=== PATIENT | female | born 1965 | race African-American/Black ===

== ENCOUNTER 2018-03-11 12:00 | Day surgery (SDC) | payer OTHER ==
[2018-02-12 13:01] VITALS: BMI 35.3
[~2018-03-11 12:00] MED LIST: BUPIVACAINE HCL/PF 0.5% (5MG/ML) 10 ML VIAL IJ ONE; LIDOCAINE HCL 1%, 10 MG/ML (20ML VIAL) INF ONE
--- NOTE | 2018-03-11 12:47 | HP ---
Satellite [facility] - Chief Complaint Chief Complaint: right wrist pain - Past Medical History Allergies/Adverse Reactions: Allergies Allergy/AdvReac Type Severity Reaction Status Date / Time gabapentin [From Neurontin] Allergy Severe Itching Verified 08/14/16 08:57 egg Allergy ASTHMA Verified 08/14/16 08:57 ATTACK shellfish derived Allergy Difficulty Verified 08/14/16 08:57 Breathing tramadol Allergy Itching Verified 08/14/16 08:57 ALL NARCOTICS Allergy SEVERE Uncoded 08/14/16 08:57 GENERALIZED ITCHING ...LMP: 12/15/14 - Current Medications Current Medications: Home Medications Medication Instructions Recorded Albuterol Sulfate Inhaler - 1 - 2 inh PO Q4H PRN 08/14/15 [Ventolin HFA Inhaler -] Botulinum Toxin A [Botox (Nf) -] 0 units IM ASDIR 08/14/15 Medroxyprogesterone Acetate mg IM ASDIR 08/14/15 [Depo-Provera -] Diclofenac Sodium [Pennsaid] 112 gm TP DAILY 02/12/18 Mometasone/Formoterol [Dulera 100 2 inh IH BID 02/12/18 Mcg/5 Mcg Inhaler] Satellite Physical Exam - Physical Examination General Appearance: Well Nourished, Well Developed, Alert & Oriented x3 ENT: Clear Lung: Normal air movement Heart: Regular rate & rhythm Extremities: Other (right wrist- + ttp first dorsal wrist compartment, + finkelsteins, nvi) Neurological: Intact, Alert, Oriented Satellite Impression/Plan - Impression/Plan Impression: right dequervains tenosynovitis Operative Procedure: right dequervains release Date to be Performed: 03/11/18
[2018-03-11] MEDS ORDERED: LIDOCAINE HCL 1%, 10 MG/ML (20ML VIAL) ONE (14:40)
[2018-03-11] MEDS ORDERED: BUPIVACAINE HCL/PF 0.5% (5MG/ML) 10 ML VIAL ONE (14:40)
[2018-03-11] MEDS ORDERED: MIDAZOLAM HCL 2 MG/2 ML SINGLE DOSE VIAL ONE ×3 (14:43→15:28)
[2018-03-11] MEDS ORDERED: KETAMINE HCL 200 MG/20 ML VIAL ONE (15:03)
[2018-03-11] MEDS ORDERED: ceFAZolin SODIUM 1 GM VIAL IVPB ONE (15:10)
[2018-03-11] MEDS ORDERED: GLYCOPYRROLATE 0.2 MG/1 ML VIAL ONE (15:17)
[2018-03-11] MEDS ORDERED: SODIUM CHLORIDE 0.9% P/F 10 ML VIAL IJ ONE (15:19)
[2018-03-11] MEDS ORDERED: BUPIVACAINE HCL/PF 0.5% (5MG/ML) 10 ML VIAL IJ ONE ×2 (15:26)
[2018-03-11] MEDS ORDERED: LIDOCAINE HCL 1%, 10 MG/ML (20ML VIAL) INF ONE ×2 (15:26)
[2018-03-11] MEDS ORDERED: LIDOCAINE HCL/PF 2% SDV 5ML VIAL ONE (15:39)
[2018-03-11] MEDS ORDERED: ceFAZolin SODIUM 1 GM VIAL ONE (15:39)
[2018-03-11] MEDS ORDERED: DEXAMETHASONE SOD PHOSPHATE 4 MG/1 ML VIAL ONE (15:39)
--- NOTE | 2018-03-11 15:50 | OP ---
Operative Note - Note: Operative Date: 03/11/18 Pre-Operative Diagnosis: right Dequervain's Operation: right Dequervain's release, tendon sheath excision Post-Operative Diagnosis: Same as Pre-op Surgeon: Juan Vela Anesthesiologist/CALL CENTER PROFESSIONAL: Dorothea Chavez Anesthesia: Local, MAC Specimens Removed: tendon sheath Estimated Blood Loss (mls): 0 Blood Volume Replaced (mls): 0 Fluid Volume Replaced (mls): 500 Operative Report Dictated: Yes
[2018-03-11] MEDS ORDERED: ONDANSETRON 4 MG/2 ML VIAL IVPUSH PRN (15:55)
[2018-03-11] MEDS ORDERED: ACETAMINOPHEN 1000 MG/100 ML VIAL (NON FORMULARY) IVPB ONE (15:56)
[2018-03-11] MEDS ORDERED: ACETAMINOPHEN INJECTION 100 ML IVPB ONE (15:59)
[2018-03-11] MEDS ORDERED: LACTATED RINGERS SOLUTION 1,000 ML IV SCH (16:00)
[2018-03-11 17:48] VITALS: BP 152/96; PULSE 89; TEMP 98.3
--- NOTE | 2018-03-12 12:25 | SPEC ---
DATE OF OPERATION: 03/11/2018 PREOPERATIVE DIAGNOSIS: Recurrent severe right de Quervains tenosynovitis. POSTOPERATIVE DIAGNOSIS: Recurrent severe right de Quervains tenosynovitis. PROCEDURE: Right de Quervains release and tendon sheath excision. SURGEON: Juan Vela M.D. ASSISTANTS: ANESTHESIA: MAC anesthesia, local injection of 12 mL of 0.5% Marcaine and 1% lidocaine mix. DRAINS: None. COMPLICATIONS: None. SPECIMEN: Tendon sheath, right wrist. BLOOD LOSS: None. BLOOD GIVEN: None. FLUID REPLACEMENT: 500 mL. SPECIMEN: First dorsal wrist compartment tendon sheath, right wrist. INDICATIONS: The patient is a 52-year-old female with the preoperative diagnosis of a right de Quervain's release and tendon sheath excision. After understanding the potential risks, complications, alternatives and benefits of surgery versus nonsurgical treatment, the patient elected to undergo this procedure. DESCRIPTION OF PROCEDURE: Patient was brought to the operating room, peripheral IV placed, IV sedation given. One gram of IV Ancef was given. MAC anesthesia was induced. The tourniquet was applied to the right arm. The entire care was done under 3.8 loop magnification. The right upper extremity was prepped and draped in a sterile fashion. A longitudinal incision was marked out with a marking pen. A mix of 10 mL of 0.5% Marcaine and 1% lidocaine was injected in and around the surgical area. The right upper extremity was then elevated, exsanguinated with an Esmarch bandage, and the tourniquet inflated to 250 mmHg. A No. 15 scalpel blade was utilized to make a longitudinal incision. Subcutaneous hemostasis was achieved with a bipolar cautery. Dissection was done with a Littler scissors down to the first dorsal wrist compartment. Great care was taken to directly visualize and preserve all crossing sensory branches of the sensory nerve. Under direct visualization, the first dorsal wrist compartment was visualized and it was freed up from some adhesions with a Mcgehee elevator. Next, a fresh No. 15 scalpel blade was utilized to open up the first dorsal wrist compartment, starting proximally and going distally both with the No. 15 scalpel blade and also with a Littler scissors. The anatomy was seen to have multiple slips of the abductor pollicis longus and the extensor pollicis brevis was in its own tendon tunnel. This was also released and the wall between the two excised. The roof of the tunnel was excised. This was all passed off the field as specimen. The volar lip of the first dorsal wrist compartment was preserved to prevent volar subluxation. The release was completed both distally and proximally in both compartments. I was able to bring out all slips through the wound with a Ragnell retractor and there were no obvious points of compression. The area was copiously irrigated and washed out, again explored and I didn't see any other abnormal tissue and therefore closure was begun. Undyed 4-0 Vicryl was used to close the deep dermal layer. Final skin reapproximation was done with a running subcuticular 4-0 Biosyn stitch. The area was then washed and dried, covered with Steri-Strips, 4 x 4's, fluffs between the fingers, Webril and Coban used to make a thumb spica Coban splint. The tourniquet was taken down after a total tourniquet time of 11 minutes. There were no complications during the case. The patient tolerated the procedure quite well and was brought to ambulatory recovery room in stable condition. Fiona [id number]
--- NOTE | 2018-03-16 08:53 | PATH ---
Surgical Pathology Report Patient Name: MELANIE ZAIDI [facility]. Rec. #: [id number] /Age/Gender: 1965 (Age: 52) / F Account: [id number] Location: U SURGICAL Taken: 03/11/2018 Received: 03/12/2018 Reported: 03/16/2018 Physicians: Juan Vela M.D. Specimen(s) Received TENDON SHEATH Clinical History Right de Quervains Final Diagnosis SOFT TISSUE, RIGHT DE QUERVAIN'S RELEASE: TENOSYNOVIUM WITH MILD CHRONIC INFLAMMATION. Electronically Signed Royal Ladd M.D. Gross Description Received in formalin labeled "tendon sheath" are multiple fragments of white-shen fibromembranous soft tissue measuring 1 x 1 x 0.4 cm in aggregate. The entire specimen is submitted in one cassette [facility] [place]12[place]2018 [place]/03/12/2018
== END 2018-03-11 17:59 | disposition home or self-care (01) ==
LOC: JASU-SURG 12:00
PROVIDERS: ATTEND Orthopaedic Surgery
PROC: 0LN50ZZ Release Right Lower Arm and Wrist Tendon, Open Approach (ICD-10-PCS; principal; 2018-03-11 14:00)
DX: M65.4 Radial styloid tenosynovitis [de Quervain] (principal)
CPT/HCPCS: 88304-TC; J0131

== ENCOUNTER 2022-11-19 05:59 | Day surgery (SDC) | payer OTHER ==
[2022-11-14 16:03] VITALS: BMI 32.1
[2022-11-19] MEDS ORDERED: THROMBIN (BOVINE) 5,000 UNIT VIAL TP ONE (06:44)
[2022-11-19] MEDS ORDERED: ceFAZolin SODIUM 1 GM VIAL ONE ×2 (06:44→07:45)
[2022-11-19] MEDS ORDERED: CEFAZOLIN 2 GM in DEXTROSE 5%-WATER - 50 ML IVPB ONE (07:13)
[2022-11-19] MEDS ORDERED: BUPIVICAINE 0.25%/MORPH PF/KETOROLAC - 51ML DISP.SYRINGE IA ONE ×2 (07:13→08:26)
[2022-11-19] MEDS ORDERED: ONDANSETRON 4 MG/2 ML VIAL IVPUSH PRN ×2 (07:13→09:12)
[2022-11-19] MEDS ORDERED: ALBUTEROL SO4 HFA INHALER IH PRN (07:14)
[2022-11-19] MEDS ORDERED: RIMEGEPANT SULFATE 75 MG TAB.RAPDIS SL PRN (07:14)
[2022-11-19] MEDS ORDERED: LACTATED RINGERS SOLUTION 1,000 ML IV SCH (07:15)
[2022-11-19] MEDS ORDERED: ROPIVACAINE HCL 0.5% 30ML VIAL ONE (07:20)
[2022-11-19] MEDS ORDERED: SODIUM CHLORIDE 0.9% P/F 10 ML VIAL IJ ONE (07:20)
[2022-11-19] MEDS ORDERED: MIDAZOLAM HCL 2 MG/2 ML SINGLE DOSE VIAL ONE ×2 (07:20→07:44)
[2022-11-19] MEDS ORDERED: BUPIVACAINE HCL/PF 0.5% (5MG/ML) 10 ML VIAL ONE (07:20)
[2022-11-19] MEDS ORDERED: SUCCINYLCHOLINE CHLORIDE 200 MG/10 ML SYRINGE ONE (07:44)
[2022-11-19] MEDS ORDERED: DEXAMETHASONE SOD PHOSPHATE 4 MG/1 ML VIAL ONE (07:45)
[2022-11-19] MEDS ORDERED: PHENYLEPHRINE HCL 10 MG/1 ML SINGLE DOSE VIAL ONE (07:45)
[2022-11-19] MEDS ORDERED: KETOROLAC TROMETHAMINE 30 MG/1 ML VIAL ONE (07:45)
[2022-11-19] MEDS ORDERED: TRANEXAMIC ACID 1000 MG/10 ML VIAL IVPUSH ONE (08:30)
[2022-11-19] MEDS ORDERED: oxyCODONE HCL 5 MG TABLET PO PRN (09:12)
[2022-11-19] MEDS ORDERED: PROMETHAZINE HCL 25 MG/1 ML VIAL IVPUSH PRN (09:12)
[2022-11-19] MEDS ORDERED: PATIENT'S OWN MEDICATION (NON-FORMULARY) (Fluticasone/Vilanterol 1 PUFF Each) IH SCH (10:00)
[2022-11-19] MEDS: ACETAMINOPHEN 500 MG TABLET (FP) PO SCH ×3 (10:00→22:28)
[2022-11-19] MEDS: CEFAZOLIN 2 GM in DEXTROSE 5%-WATER - 50 ML IVPB SCH (17:00)
[2022-11-19] MEDS: PANTOPRAZOLE 40 MG TABLET PO SCH (17:11)
[2022-11-19] MEDS: MULTIVITAMINS (DAILY MVI) TABLET (FP) PO SCH (17:11)
[2022-11-19] MEDS: SENNOSIDES/DOCUSATE COMBO (SENNA PLUS) TABLET (UD) PO SCH ×2 (17:11→22:27)
[2022-11-19] MEDS: FAMOTIDINE 20 MG/50 ML IVPB 20 MG/50 ML MG IVPB SCH ×2 (17:11→22:27)
[2022-11-19 18:19] VITALS: RESP 18
[2022-11-20] MEDS: CEFAZOLIN 2 GM in DEXTROSE 5%-WATER - 50 ML IVPB SCH (00:08)
[2022-11-20] MEDS: oxyCODONE HCL 5 MG TABLET PO PRN ×4 (01:17→13:59)
[2022-11-20] MEDS: ACETAMINOPHEN 500 MG TABLET (FP) PO SCH ×3 (06:17→15:33)
[2022-11-20] MEDS ORDERED: ASPIRIN 325 MG TABLET PO SCH (08:00)
[2022-11-20] MEDS: FAMOTIDINE 20 MG/50 ML IVPB 20 MG/50 ML MG IVPB SCH (09:11)
[2022-11-20] MEDS: SENNOSIDES/DOCUSATE COMBO (SENNA PLUS) TABLET (UD) PO SCH (09:12)
[2022-11-20] MEDS: PANTOPRAZOLE 40 MG TABLET PO SCH (09:12)
[2022-11-20] MEDS: MULTIVITAMINS (DAILY MVI) TABLET (FP) PO SCH (09:12)
[2022-11-20 13:52] VITALS: BP 136/62; PULSE 76; TEMP 98.3
== END 2022-11-20 16:05 | disposition home health service (06) ==
LOC: FASUSAT 05:59 → FM/S 10:48 → FASUSAT 11-20 16:05
PROVIDERS: ATTEND Orthopaedic Surgery
PROC: 8E0Y0CZ Robotic Assisted Procedure of Lower Extremity, Open Approach (ICD-10-PCS; 2022-11-19)
PROC: 0SRD0L9 Replacement of Left Knee Joint with Medial Unicondylar Synthetic Substitute, Cemented, Open Approach (ICD-10-PCS; principal; 2022-11-19 07:51)
DX: M17.12 Unilateral primary osteoarthritis, left knee (principal)
CPT/HCPCS: 20985; 27446; C1776; S2900; 73560-TC-LT-FY; 94760; 97010-GP; 97116-GP; 97162-GP; C1889

== ENCOUNTER 2023-01-29 04:03 | Day surgery (SDC) | payer OTHER ==
[2023-01-24 16:53] VITALS: BMI 32.1
[2023-01-29] MEDS ORDERED: MIDAZOLAM HCL 2 MG/2 ML SINGLE DOSE VIAL ONE (10:52)
[2023-01-29] MEDS ORDERED: PROPOFOL 20 ML ONE (10:57)
[2023-01-29] MEDS ORDERED: ceFAZolin SODIUM 1 GM VIAL ONE (10:57)
[2023-01-29] MEDS ORDERED: ONDANSETRON 4 MG/2 ML VIAL ONE (10:57)
[2023-01-29] MEDS ORDERED: DEXAMETHASONE SOD PHOSPHATE 4 MG/1 ML VIAL ONE (10:57)
[2023-01-29] MEDS ORDERED: ceFAZolin SODIUM 1 GM VIAL IVPB ONE (11:11)
[2023-01-29] MEDS ORDERED: LABETALOL HCL 20 MG/4 ML VIAL ONE (11:47)
[2023-01-29] MEDS ORDERED: LABETALOL HCL 5 MG/1 ML (100MG/20 ML VIAL) IVPUSH ONE ×2 (11:48→11:50)
[2023-01-29] MEDS ORDERED: ACETAMINOPHEN 1000 MG/100 ML BAG IVPB PRN (11:50)
[2023-01-29] MEDS ORDERED: ONDANSETRON 4 MG/2 ML VIAL IVPUSH PRN (11:50)
[2023-01-29] MEDS ORDERED: ACETAMINOPHEN 1000 MG/100 ML BAG IVPB ONE (11:55)
[2023-01-29] MEDS ORDERED: LACTATED RINGERS SOLUTION 1,000 ML IV SCH (12:00)
[2023-01-29] MEDS ORDERED: hydrALAZINE HCL 20 MG/ML VIAL IVPUSH PRN (12:50)
[2023-01-29] MEDS ORDERED: hydrALAZINE HCL 20 MG/ML VIAL IVPUSH ONE (12:51)
[2023-01-29 13:47] VITALS: RESP 18
[2023-01-29 14:53] VITALS: BP 144/66; PULSE 86; TEMP 98.5
== END 2023-01-29 14:45 | disposition home or self-care (01) ==
LOC: JASU-SURG 04:03
PROVIDERS: ATTEND Orthopaedic Surgery
PROC: 0JBP0ZZ Excision of Left Lower Leg Subcutaneous Tissue and Fascia, Open Approach (ICD-10-PCS; 2023-01-29)
PROC: 0KBT0ZZ Excision of Left Lower Leg Muscle, Open Approach (ICD-10-PCS; principal; 2023-01-29 10:15)
DX: T81.89XA Other complications of procedures, not elsewhere classified, initial encounter (principal); Z96.652 Presence of left artificial knee joint
CPT/HCPCS: 87070; 87186; 87205; 88304-TC; 94760